=== PATIENT | male | born 1965 | race American Indian/Alaskan Native ===

== ENCOUNTER 2020-01-28 13:57 | Emergency (ER) | payer OTHER ==
[2020-01-28 14:02] VITALS: BP 124/86
[2020-01-28] MEDS ORDERED: predniSONE 20 MG TAB PO ONE (14:06)
[2020-01-28] MEDS ORDERED: ALBUTEROL 2.5 MG/3 ML NEBU IH ONE (14:06)
--- NOTE | 2020-01-28 14:08 | Emergency Department Report ---
Minor Respiratory - HPI Chief Complaint: Adult Asthma Stated Complaint: SOB/ASTHMA Time Seen by Provider: 01/28/20 14:05 Duration: 2 Days Pain Location: Chest Severity: mild Minor Respiratory: Yes Able to Tolerate Fluids, Yes Cough, Yes Shortness of Breath, No Rhinorrhea, No Sore Throat, No Ear Pain, No Sick Contacts, No Hemoptysis, No Chest Pain, No Fever Other History: Patient is a 54-year-old male who comes to the ER complaining of wheezing. Patient has a history of asthma. He is out of his home medications. He has no fever or chills. He reports yellow sputum. Patient denies any chest pain other than that associated with the wheezing. He denies any exposure to CoVID. He has no nausea vomiting or diarrhea. He has no abnormal taste or smell ED Review of Systems ROS: Stated complaint: SOB/ASTHMA Other details as noted in HPI Comment: All other systems reviewed and negative ED Past Medical Hx - Past Medical History Previous Medical History?: Yes Hx Hypertension: Yes Hx Heart Attack/AMI: No Hx Congestive Heart Failure: No Hx Headaches / Migraines: Yes Hx Asthma: Yes (albuterol PRN, Pt is breathing at his baseline.) - Surgical History Past Surgical History?: No - Family History Family history: no significant - Social History Smoking Status: Former Smoker Substance Use Type: None - Medications Home Medications: Home Medications Medication Instructions Recorded Confirmed Last Taken Type Albuterol Sulfate [Ventolin HFA] 2 puff INHALATION BID 10/29/15 10/29/15 12/23/15 History Aspirin EC [Halfprin EC] 81 mg PO DAILY 10/29/15 10/29/15 12/31/15 History 81 mg Metoprolol [Lopressor TAB] 25 mg PO BID 10/29/15 10/29/15 12/31/15 History 25 mg Mometasone/Formoterol [Dulera 100 1 puff INHALATION PRN PRN 10/29/15 10/29/15 12/23/15 History Mcg-5 Mcg Inhaler] Nitroglycerin [Nitrostat] 0.4 mg SL Q5M PRN 10/29/15 10/29/15 11/06/15 History Vit D3-Vit K/Berberine/Hops 50,000 units PO 2XW 10/29/15 10/29/15 12/30/15 History [Ostera Tablet] 26608 units lisinopriL [Zestril TAB] 20 mg PO QDAY 10/29/15 10/29/15 12/30/15 History 20 mg ALBUTEROL NEB's [Proventil 0.083% 2.5 mg IH TID PRN #1 box 01/28/20 Unknown Rx NEBS] Albuterol Sulfate [Proair 90 mcg IH QID PRN #1 aer.pow.ba 01/28/20 Unknown Rx Respiclick] Azithromycin [Zithromax Z-JONAH] 250 mg PO DAILY #6 tablet 01/28/20 Unknown Rx Cetirizine HCl [ZyrTEC] 10 mg PO DAILY #30 capsule 01/28/20 Unknown Rx Fluticasone [Flonase] 1 spray NS QDAY #1 bottle 01/28/20 Unknown Rx predniSONE [Deltasone] 20 mg PO DAILY #5 tablet 01/28/20 Unknown Rx Minor Respiratory Exam - Exam General: Vital signs noted. No distress. Alert and acting appropriately. HEENT: Yes Moist Mucous Membranes, No Pharyngeal Erythema, No Pharyngeal Exudates, No Rhinorrhea, No Conjuctival Injection, No Frontal Tenderness, No Maxillary Tenderness Ear: Neither TM Bulge, Neither TM Erythema, Neither EAC Pain, Neither EAC Discharge Neck: Yes Supple, No Adenopathy Lungs: Yes Good Air Exchange, Yes Wheezes, No Ronchi, No Stridor, No Cough, No Labored Respirations, No Retractions, No Use of Accessory Muscles, No Other A bnormal Lung Sounds Heart: Yes Regular, No Murmur Abdomen: Yes Normal Bowel Sounds, No Tenderness, No Peritoneal Signs Skin: No Rash, No Edema Neurologic: Alert and oriented, no deficits. Musculoskeletal: Unremarkable. ED Course Vital Signs 01/28/20 14:00 Temperature 98.1 F Pulse Rate 91 H Respiratory 20 Rate Blood Pressure 124/86 O2 Sat by Pulse 96 Oximetry ED Medical Decision Making - Radiology Data Radiology results: report reviewed, image reviewed - Medical Decision Making Vital Signs 01/28/20 14:00 Temperature 98.1 F Pulse Rate 91 H Respiratory 20 Rate Blood Pressure 124/86 O2 Sat by Pulse 96 Oximetry NO FEVER NO CHILLS YELLOW SPUTUM XRAY NOTED NO HYPOXIA, TACHYCARDIA OR HYPOTENSION DUONEB AND PREDNISONE with improvement. PT BEING DC HOME WITH DC POC AND PCP FOLLOW UP. HE VERBALIZES UNDERSTANDING OF DC POC. - Differential Diagnosis ASTHMA AE W OR WO INFECTION Critical care attestation.: If time is entered above; I have spent that time in minutes in the direct care of this critically ill patient, excluding procedure time. ED Disposition Clinical Impression: Asthma with acute exacerbation, URTI (acute upper respiratory infection) Disposition: DC-01 TO HOME OR SELFCARE Is pt being admited?: No Does the pt Need Aspirin: No Condition: Stable Instructions: Asthma (ED) Additional Instructions: MEDS ORDERED TODAY STAY WELL HYDRATED AVOID TRIGGERS FOLLOW UP WITH PCP REFERRAL BELOW Prescriptions: predniSONE [Deltasone] 20 mg PO DAILY #5 tablet Fluticasone [Flonase] 1 spray NS QDAY #1 bottle Albuterol Sulfate [Proair Respiclick] 90 mcg IH QID PRN #1 aer.pow.ba PRN Reason: Wheezing ALBUTEROL NEB's [Proventil 0.083% NEBS] 2.5 mg IH TID PRN #1 box PRN Reason: Wheezing Azithromycin [Zithromax Z-JONAH] 250 mg PO DAILY #6 tablet Cetirizine HCl [ZyrTEC] 10 mg PO DAILY #30 capsule Referrals: BETHANY DALY MD [Staff Physician] - 3-5 Days Time of Disposition: 14:08
--- NOTE | 2020-01-28 14:48 | XRay Report ---
CHEST 1 VIEW INDICATION: SOB. COMPARISON: None. FINDINGS: Support devices: None. Heart: Normal. Lungs/Pleura: Mild increased interstitial markings are seen in both lungs. No consolidation or effusi on. IMPRESSION: 1. Mild increased interstitial markings in both lungs, greater on the right, could be seen in the set ting of lower airways disease. Signer Name: Albert Reynaga MD Signed: 01/28/2020 2:43 PM Workstation Name: [id number]
== END 2020-01-28 15:28 | disposition home or self-care (01) ==
LOC: ED 13:57
DX: J45.901 Unspecified asthma with (acute) exacerbation (principal); J06.9 Acute upper respiratory infection, unspecified; I10 Essential (primary) hypertension; G43.909 Migraine, unspecified, not intractable, without status migrainosus; Z87.891 Personal history of nicotine dependence; Z79.2 Long term (current) use of antibiotics; Z79.899 Other long term (current) drug therapy; Z91.013 Allergy to seafood
CPT/HCPCS: 71045; 94640; 99283; J7512

== ENCOUNTER 2021-07-14 20:05 | Emergency (ER) | payer OTHER ==
[2021-07-14 22:29] VITALS: BP 144/93
[2021-07-15] MEDS ORDERED: IPRATROPIUM/ALBUTEROL SULFATE 3 ML AMPUL.NEB IH ONE (05:33)
[2021-07-15] MEDS ORDERED: dexAMETHasone 4 MG/ML VIAL IM ONE (05:33)
[2021-07-15] MEDS ORDERED: ACETAMINOPEN W/CODEINE 120-12MG ORAL LIQD 5 ML PO STA (05:35)
--- NOTE | 2021-07-15 07:33 | Emergency Department Report ---
ED Asthma HPI - General Chief Complaint: Adult Asthma Stated Complaint: CP/ASTHMA/BODYACHES Time Seen by Provider: 07/15/21 05:33 Source: patient Mode of arrival: Ambulatory Limitations: No Limitations - History of Present Illness Initial Comments: 56-year-old male with no history presents emerged part complaining of exacerbation to 2 days ago which continues to linger off and on since the onset. Reports no hemoptysis no hematemesis medic easy, no fever, chills, sweats but does get shortness of breath and some wheezing off and on with the cough. MD Complaint: shortness of breath, wheezing -: Gradual, days(s) (4) Severity: mild, moderate Context: recent URI, ran out of meds Associated Symptoms: productive cough - Related Data Current Asthma Therapy: none Home Medications Medication Instructions Recorded Confirmed Last Taken Albuterol Sulfate [Ventolin HFA] 2 puff INHALATION BID 10/29/15 10/29/15 12/23/15 Aspirin EC [Halfprin EC] 81 mg PO DAILY 10/29/15 10/29/15 12/31/15 81 mg Metoprolol [Lopressor TAB] 25 mg PO BID 10/29/15 10/29/15 12/31/15 25 mg Mometasone/Formoterol [Dulera 100 1 puff INHALATION PRN PRN 10/29/15 10/29/15 12/23/15 Mcg-5 Mcg Inhaler] Nitroglycerin [Nitrostat] 0.4 mg SL Q5M PRN 10/29/15 10/29/15 11/06/15 Vit D3-Vit K/Berberine/Hops 50,000 units PO 2XW 10/29/15 10/29/15 12/30/15 [Ostera Tablet] 58721 units lisinopriL [Zestril TAB] 20 mg PO QDAY 10/29/15 10/29/15 12/30/15 20 mg Previous Rx's Medication Instructions Recorded Last Taken Type ALBUTEROL NEB's [Proventil 0.083% 2.5 mg IH TID PRN #1 box 01/28/20 Unknown Rx NEBS] Albuterol Sulfate [Proair 90 mcg IH QID PRN #1 aer.pow.ba 01/28/20 Unknown Rx Respiclick] Azithromycin [Zithromax Z-JONAH] 250 mg PO DAILY #6 tablet 01/28/20 Unknown Rx Cetirizine HCl [ZyrTEC] 10 mg PO DAILY #30 capsule 01/28/20 Unknown Rx Fluticasone [Flonase] 1 spray NS QDAY #1 bottle 01/28/20 Unknown Rx predniSONE [Deltasone] 20 mg PO DAILY #5 tablet 01/28/20 Unknown Rx Albuterol Mdi (or & Nicu Only) 2 puff IH QID PRN #1 inhalation 07/15/21 Unknown Rx [ProAir HFA Inhaler] Montelukast [Singulair] 10 mg PO QPM #14 tablet 07/15/21 Unknown Rx predniSONE [Deltasone] 20 mg PO QDAY #5 tab 07/15/21 Unknown Rx Allergies Allergy/AdvReac Type Severity Reaction Status Date / Time shellfish derived Allergy Intermediate Rash Verified 01/28/20 14:01 ED Review of Systems ROS: Stated complaint: CP/ASTHMA/BODYACHES Other details as noted in HPI Comment: All other systems reviewed and negative ED Past Medical Hx - Past Medical History Hx Hypertension: Yes Hx Heart Attack/AMI: No Hx Congestive Heart Failure: No Hx Headaches / Migraines: Yes Hx Asthma: Yes (albuterol PRN, Pt is breathing at his baseline.) - Surgical History Past Surgical History?: No - Social History Smoking Status: Former Smoker Substance Use Type: None - Medications Home Medications: Home Medications Medication Instructions Recorded Confirmed Last Taken Type Albuterol Sulfate [Ventolin HFA] 2 puff INHALATION BID 10/29/15 10/29/15 12/23/15 History Aspirin EC [Halfprin EC] 81 mg PO DAILY 10/29/15 10/29/15 12/31/15 History 81 mg Metoprolol [Lopressor TAB] 25 mg PO BID 10/29/15 10/29/15 12/31/15 History 25 mg Mometasone/Formoterol [Dulera 100 1 puff INHALATION PRN PRN 10/29/15 10/29/15 12/23/15 History Mcg-5 Mcg Inhaler] Nitroglycerin [Nitrostat] 0.4 mg SL Q5M PRN 10/29/15 10/29/15 11/06/15 History Vit D3-Vit K/Berberine/Hops 50,000 units PO 2XW 10/29/15 10/29/1512/29/16 History [Ostera Tablet] 72638 units lisinopriL [Zestril TAB] 20 mg PO QDAY 10/29/15 10/29/15 12/30/15 History 20 mg ALBUTEROL NEB's [Proventil 0.083% 2.5 mg IH TID PRN #1 box 01/28/20 Unknown Rx NEBS] Albuterol Sulfate [Proair 90 mcg IH QID PRN #1 aer.pow.ba 01/28/20 Unknown Rx Respiclick] Azithromycin [Zithromax Z-JONAH] 250 mg PO DAILY #6 tablet 01/28/20 Unknown Rx Cetirizine HCl [ZyrTEC] 10 mg PO DAILY #30 capsule 01/28/20 Unknown Rx Fluticasone [Flonase] 1 spray NS QDAY #1 bottle 01/28/20 Unknown Rx predniSONE [Deltasone] 20 mg PO DAILY #5 tablet 01/28/20 Unknown Rx Albuterol Mdi (or & Nicu Only) 2 puff IH QID PRN #1 inhalation 07/15/21 Unknown Rx [ProAir HFA Inhaler] Montelukast [Singulair] 10 mg PO QPM #14 tablet 07/15/21 Unknown Rx predniSONE [Deltasone] 20 mg PO QDAY #5 tab 07/15/21 Unknown Rx ED Physical Exam - General Limitations: No Limitations General appearance: alert, in no apparent distress - Head Head exam: Present: atraumatic, normocephalic - Eye Eye exam: Present: normal appearance, PERRL, EOMI Pupils: Present: normal accommodation - ENT ENT exam: Present: normal exam, normal orophraynx, mucous membranes moist, TM's normal bilaterally - Neck Neck exam: Present: normal inspection, full ROM - Respiratory Respiratory exam: Present: normal lung sounds bilaterally, other (Slight increased work of breathing noted). Absent: respiratory distress, wheezes, rales, rhonchi, chest wall tenderness, accessory muscle use, decreased breath sounds - Cardiovascular Cardiovascular Exam: Present: regular rate, normal rhythm. Absent: bradycardia, tachycardia, systolic murmur, diastolic murmur, rubs, gallop - GI/Abdominal GI/Abdominal exam: Present: soft, normal bowel sounds. Absent: tenderness, guarding - Rectal Rectal exam: Present: deferred - Extremities Exam Extremities exam: Present: normal inspection, normal capillary refill - Back Exam Back exam: Present: normal inspection. Absent: CVA tenderness (R), CVA tenderness (L), paraspinal tenderness, vertebral tenderness - Neurological Exam Neurological exam: Present: alert, oriented X3, CN II-XII intact, normal gait, motor sensory deficit - Psychiatric Psychiatric exam: Present: normal affect, normal mood - Skin Skin exam: Present: warm, dry, intact, normal color. Absent: rash ED Course Vital Signs 07/14/21 07/15/21 22:27 06:41 Temperature 97.6 F Pulse Rate 74 Pulse Rate [ 63 Bilateral Throughout] Respiratory 18 Rate Respiratory 18 Rate [Bilateral Throughout] Blood Pressure 144/93 O2 Sat by Pulse 99 Oximetry ED Medical Decision Making - Medical Decision Making No altered mental status, saddle respirations, belly breathing or other signs of impending ventilatory failure. No intubations or recent admissions to the hospital for asthma. Unlikely pneumonia, CHF, COPD, GERD Mr. Cat started on a DuoNeb in conjunction with oral steroids and maintain stability throughout his stay. He did respond to the treatment with decreased work of breathing and improve airflow to the to the airway. Able to speak in full sentences and carry on a normal conversation. Therapies: Prednisone 50 mg PO. Albuterol nebulizer Reassessment: Patient improved with albuterol and ipratropium in less than 3 hours. Disposition: Discharge home with return precautions. Advised to follow up with primary care physician within next 24-48 hours. Aside from this acute exacerbation patient has been well controlled on baseline home regimen. Rx short steroid course, albuterol, Singulair, Flovent Critical care attestation.: If time is entered above; I have spent that time in minutes in the direct care of this critically ill patient, excluding procedure time. ED Disposition Clinical Impression: Asthma attack, Bronchitis Disposition: HOME / SELF CARE / HOMELESS Is pt being admited?: No Does the pt Need Aspirin: No Condition: Stable Instructions: Chronic Bronchitis (ED), Asthma, Adult, Peak Flow Meter, How to Use a Nebulizer, Adult, Asthma Attack, Asthma, Adult, [id number], Form - Asthm a Action Plan, Adult Additional Instructions: You were evaluated emergency department today for cough. Chest x-ray did not show any evidence of any pneumonia and your cough is most likely due to a viral illness which will improve on its own with rest and fluids. You can take [id number]-[id number] medications such as various tceb-bnz-voshsid cough medications and also some decongestions to help diurese your symptoms. Please schedule an appointment to follow-up with your primary care physician within 2 days Return to emergency department if you expands worsening cough, fever 101 100.4 or greater, recurrent vomiting, chest pain, shortness of breath or other concerning problems you were seen in emergency department today for shortness of breath. Symptoms improved with albuterol and steroids and your evaluation did not show evidence of any medical conditions requiring emergent intervention at this time. You have been given a prescription for steroids and an inhaler please take them as directed. Please follow-up with your primary care physician within 2 days. Return to emerge department if you experience worsening shortness of breath, chest pain, headache, lightheadedness or any other symptoms sick suggestion your condition is worsening Referrals: PRIMARY CAREMD [Primary Care Provider] - 3-5 Days [facility] [Provider Group] - 3-5 Days
--- NOTE | 2021-07-15 11:07 | Emergency Department Report ---
ED Asthma HPI - General Chief Complaint: Adult Asthma Stated Complaint: CP/ASTHMA/BODYACHES Time Seen by Provider: 07/15/21 05:33 Source: patient Mode of arrival: Ambulatory Limitations: No Limitations - History of Present Illness MD Complaint: "asthma attack", shortness of breath, wheezing -: Gradual Severity: mild, moderate Context: recent URI Associated Symptoms: productive cough Treatments Prior to Arrival: inhaled bronchodilator - Related Data Current Asthma Therapy: none Home Medications Medication Instructions Recorded Confirmed Last Taken Albuterol Sulfate [Ventolin HFA] 2 puff INHALATION BID 10/29/15 10/29/15 12/23/15 Aspirin EC [Halfprin EC] 81 mg PO DAILY 10/29/15 10/29/15 12/31/15 81 mg Metoprolol [Lopressor TAB] 25 mg PO BID 10/29/15 10/29/15 12/31/15 25 mg Mometasone/Formoterol [Dulera 100 1 puff INHALATION PRN PRN 10/29/15 10/29/15 12/23/15 Mcg-5 Mcg Inhaler] Nitroglycerin [Nitrostat] 0.4 mg SL Q5M PRN 10/29/15 10/29/15 11/06/15 Vit D3-Vit K/Berberine/Hops 50,000 units PO 2XW 10/29/15 10/29/15 12/30/15 [Ostera Tablet] 40004 units lisinopriL [Zestril TAB] 20 mg PO QDAY 10/29/15 10/29/15 12/30/15 20 mg Previous Rx's Medication Instructions Recorded Last Taken Type ALBUTEROL NEB's [Proventil 0.083% 2.5 mg IH TID PRN #1 box 01/28/20 Unknown Rx NEBS] Albuterol Sulfate [Proair 90 mcg IH QID PRN #1 aer.pow.ba 01/28/20 Unknown Rx Respiclick] Azithromycin [Zithromax Z-JONAH] 250 mg PO DAILY #6 tablet 01/28/20 Unknown Rx Cetirizine HCl [ZyrTEC] 10 mg PO DAILY #30 capsule 01/28/20 Unknown Rx Fluticasone [Flonase] 1 spray NS QDAY #1 bottle 01/28/20 Unknown Rx predniSONE [Deltasone] 20 mg PO DAILY #5 tablet 01/28/20 Unknown Rx Albuterol Mdi (or & Nicu Only) 2 puff IH QID PRN #1 inhalation 07/15/21 Unknown Rx [ProAir HFA Inhaler] Montelukast [Singulair] 10 mg PO QPM #14 tablet 07/15/21 Unknown Rx predniSONE [Deltasone] 20 mg PO QDAY #5 tab 07/15/21 Unknown Rx Allergies Allergy/AdvReac Type Severity Reaction Status Date / Time shellfish derived Allergy Intermediate Rash Verified 01/28/20 14:01 ED Review of Systems ROS: Stated complaint: CP/ASTHMA/BODYACHES Other details as noted in HPI Comment: All other systems reviewed and negative ED Past Medical Hx - Past Medical History Hx Hypertension: Yes Hx Heart Attack/AMI: No Hx Congestive Heart Failure: No Hx Headaches / Migraines: Yes Hx Asthma: Yes (albuterol PRN, Pt is breathing at his baseline.) - Surgical History Past Surgical History?: No - Social History Smoking Status: Former Smoker Substance Use Type: None - Medications Home Medications: Home Medications Medication Instructions Recorded Confirmed Last Taken Type Albuterol Sulfate [Ventolin HFA] 2 puff INHALATION BID 10/29/15 10/29/15 12/23/15 History Aspirin EC [Halfprin EC] 81 mg PO DAILY 10/29/15 10/29/15 12/31/15 History 81 mg Metoprolol [Lopressor TAB] 25 mg PO BID 10/29/15 10/29/15 12/31/15 History 25 mg Mometasone/Formoterol [Dulera 100 1 puff INHALATION PRN PRN 10/29/15 10/29/15 12/23/15 History Mcg-5 Mcg Inhaler] Nitroglycerin [Nitrostat] 0.4 mg SL Q5M PRN 10/29/15 10/29/15 11/06/15 History Vit D3-Vit K/Berberine/Hops 50,000 units PO 2XW 10/29/15 10/29/15 12/30/15 History [Ostera Tablet] 13918 units lisinopriL [Zestril TAB] 20 mg PO QDAY 10/29/15 10/29/15 12/30/15 History 20 mg ALBUTEROL NEB's [Proventil 0.083% 2.5 mg IH TID PRN #1 box 01/28/20 Unknown Rx NEBS] Albuterol Sulfate [Proair 90 mcg IH QID PRN #1 aer.pow.ba 01/28/20 Unknown Rx Respiclick] Azithromycin [Zithromax Z-JONAH] 250 mg PO DAILY #6 tablet 01/28/20 Unknown Rx Cetirizine HCl [ZyrTEC] 10 mg PO DAILY #30 capsule 01/28/20 Unknown Rx Fluticasone [Flonase] 1 spray NS QDAY #1 bottle 01/28/20 Unknown Rx predniSONE [Deltasone] 20 mg PO DAILY #5 tablet 01/28/20 Unknown Rx Albuterol Mdi (or & Nicu Only) 2 puff IH QID PRN #1 inhalation 07/15/21 Unknown Rx [ProAir HFA Inhaler] Montelukast [Singulair] 10 mg PO QPM #14 tablet 07/15/21 Unknown Rx predniSONE [Deltasone] 20 mg PO QDAY #5 tab 07/15/21 Unknown Rx ED Physical Exam - General Limitations: No Limitations General appearance: alert, in no apparent distress - Head Head exam: Present: atraumatic, normocephalic - Eye Eye exam: Present: normal appearance, PERRL, EOMI - ENT ENT exam: Present: mucous membranes moist - Neck Neck exam: Present: normal inspection - Respiratory Respiratory exam: Present: normal lung sounds bilaterally, wheezes, decreased breath sounds. Absent: respiratory distress, rales, rhonchi - Cardiovascular Cardiovascular Exam: Present: regular rate, normal rhythm. Absent: systolic murmur, diastolic murmur, rubs, gallop - GI/Abdominal GI/Abdominal exam: Present: soft, normal bowel sounds. Absent: tenderness, guarding, hyperactive bowel sounds, hypoactive bowel sounds - Rectal Rectal exam: Present: deferred - Extremities Exam Extremities exam: Present: normal inspection - Back Exam Back exam: Present: normal inspection - Neurological Exam Neurological exam: Present: alert, oriented X3 - Psychiatric Psychiatric exam: Present: normal affect, normal mood - Skin Skin exam: Present: warm, dry, intact, normal color. Absent: rash ED Course Vital Signs 07/14/21 22:27 Temperature 97.6 F Pulse Rate 74 Respiratory 18 Rate Blood Pressure 144/93 O2 Sat by Pulse 99 Oximetry Critical care attestation.: If time is entered above; I have spent that time in minutes in the direct care of this critically ill patient, excluding procedure time. ED Disposition Condition: Stable Referrals: PRIMARY CARE,MD [Primary Care Provider] - 3-5 Days
== END 2021-07-15 07:49 | disposition home or self-care (01) ==
LOC: ED 20:05
DX: J45.901 Unspecified asthma with (acute) exacerbation (principal); J20.9 Acute bronchitis, unspecified; Z87.891 Personal history of nicotine dependence
CPT/HCPCS: 94640; 96372; 99282; J1100; 94644